=== PATIENT | male | born 1985 | race Caucasian/White ===

== ENCOUNTER 2025-08-07 16:00 | Inpatient (IN) ==
[2025-08-07 16:31] LABS: Hematocrit (blood only) 40.6 % (42.0-52.0); Hemoglobin 13.3 g/dl (14.0-18.0); Immature Granulocytes # (auto) 0.01 K/uL (0.01-0.20); Immature Granulocytes % (auto) 0.2 %; Mean Corpuscular Hemoglobin 28.0 pg (25.0-34.0); Mean Corpuscular Volume 85.5 fL (80.0-100.0); Platelet Count 231 K/uL (130-400); RDW Standard Deviation 47.7 fL (36.4-46.3); Red Blood Count 4.75 M/uL (4.70-6.10); White Blood Count 5.32 K/ul (4.8-10.8)
[2025-08-07 16:50] LABS: Alanine Aminotransferase 366.0 U/L (7-52); Albumin Level 4.1 gm/dl (3.4-5.0); Alkaline Phosphatase 267.0 U/L (34-104); Anion Gap 8.0 (3-11); Bilirubin,Total 8.1 mg/dl (0.2-1.0); Blood Urea Nitrogen 8.0 mg/dl (6-23); Calcium 9.4 mg/dl (8.6-10.3); Carbon Dioxide 27.0 mmol/L (21-32); Chloride 99.0 mmol/L (98-107); Creatinine Clr Calc Pharmacy 97.2 ml/min; Glucose 120.0 mg/dl (70-99(Fasting)); Lipase 13.0 U/L (11-82); Potassium 3.8 mmol/L (3.5-5.1); Sodium 134.0 mmol/L (136-145); Total Protein 7.8 gm/dl (6.0-8.3)
[2025-08-07 17:03] LABS: INR 1.4 (0.9-1.1); Partial Thromboplastin Time 27 Seconds (21-31); Prothrombin Time 14.6 Seconds (9.0-12.0)
--- NOTE | 2025-08-07 17:21 | Ultrasound Report ---
Clinical history: Right upper quadrant pain Technique: Sonography was performed of the right upper quadrant of the abdomen Findings: There is no sign of cirrhosis or significant fatty infiltration. No definite liver mass is seen There is gallbladder sludge and there are suspected small gallstones. The gallbladder is distended. The gallbladder has a normal wall thickness and no adjacent fluid is seen. No definite sonographic Rodrigez sign was detected. There is no intrahepatic or extrahepatic bile duct dilatation. The common bile duct measures 1 mm The right kidney measures 10 cm in length. There is no hydronephrosis. No definite renal calculus or mass is seen The pancreatic duct is dilated, measuring 8 mm. There is a suspected pancreatic head mass. No ascites is seen Impression: 1. Pancreatic ductal dilatation and suspected pancreatic head mass, concerning for pancreatic carcinoma. Pancreatic protocol abdominal CT with and without contrast is recommended for further evaluation 2. Gallbladder sludge and suspected small gallstones, without definite acute cholecystitis ACT 112: Positive. There are findings on this exam that require communication between the performing entity and the patient following Patient Test Result Information Act ([place] ACT 112) guidelines. Electronically signed by Carson Rich 08-07-2025 5:20 PM
[2025-08-07] MEDS: OPTIRAY 320 100ml IV ONE (18:29)
--- NOTE | 2025-08-07 18:57 | CT Scan Report ---
EXAMINATION: CT of the abdomen and pelvis performed after the administration of IV contrast TECHNIQUE: Helical CT images from the lung bases through the symphysis pubis were obtained with contrast. Coronal and sagittal reformatted images were generated at a workstation for further assessment. Dose reduction techniques were achieved by using automatic exposure control and/or adjustment of mA and/or kV according to patient size and/or use of iterative reconstruction technique. COMPARISON: None HISTORY: Abdominal pain FINDINGS: Ill-defined low attenuating masslike fullness of the head of the pancreas, as seen on series 3 image 116, measuring 3.7 x 2.5 cm, which appears to contact approximately 90 degrees of the SMV, and 90 degrees of the SMA. There is marked dilation of the pancreatic duct and marked dilation of the common bile duct and intrahepatic bile ducts with abrupt transition. A discrete liver mass is not definitely seen. Mildly dilated gallbladder without visualized stone. Adrenal glands, kidneys, spleen are normal. Antiradial caval lymph node on series 3 image 94, measures 14 x 14 mm, and is enlarged. A claudia hepatic lymph node on series 3 image 84, measuring 13 x 8 mm, is borderline enlarged. No abnormally dilated bowel. No appendicitis. The lung bases are clear. No bony abnormality. IMPRESSION: There is an ill-defined mass in the head of the pancreas, likely an adenocarcinoma, resulting in marked pancreatic and biliary ductal dilatation. A few of the surrounding lymph nodes in the upper abdomen are enlarged, with metastatic disease not excluded. No definite findings of distant metastasis. "ACT 112: Positive. There are findings on this exam that require communication between the performing entity and the patient following Patient Test Result Information Act ([place] ACT 112) guidelines." Electronically signed by King Rick 08-07-2025 6:57 PM
--- NOTE | 2025-08-07 19:28 | Emergency Department Note ---
History of Present Illness General Chief Complaint: Abnormal Labs/Diagnostic Testing Stated Complaint: DARK URINE, HIGH LIVER ENZYMES SCLERA Time Seen by Provider: 08/07/25 16:08 History of Present Illness Provider Complaint: abdominal pain Onset (ago): 1 week(s) Pain Consistency: constant Location: RUQ Radiation: epigastric Severity: moderate Maximum Pain Intensity: 4 Current Pain Intensity: 4 Quality: + stabbing and + sharp Relieved By: + nothing Exacerbated By: + nothing Context: no foreign travel, no possible food poisoning, no sick contacts, no recent antibiotic use, no recent surgery/procedure or no recent injury Associated Symptoms: + nausea and + vomiting; no diarrhea, no fever, no chills, no constipation, no dysuria, no hematemesis, no melena, no hematuria, no syncope, no headache, no chest pain and no breathing difficulty Home Medications Medication Instructions Recorded Confirmed Type buprenorphine 8 mg-naloxone 2 mg 2 tab sublingual DAILY 08/07/25 08/07/25 History sublingual tablet docusate sodium 100 mg capsule 200 mg PO DAILY 08/07/25 08/07/25 History (Colace) Allergies Allergy/AdvReac Type Severity Reaction Status Date / Time clindamycin Allergy Unknown ON SCI Verified 08/07/25 18:36 [facility] MED LIST Past Med/Surg History Problem List (Updated 08/07/25 @ 20:34 by Dale Nguyen MD) 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 (Acute) Social History Smoking Status: Former smoker Feels Safe at Home: Yes Physical Exam 2 Vital Signs: Vital Signs - 24 hr 08/07/25 16:04 08/07/25 16:19 08/07/25 16:32 Temperature 36.5 C Temperature Source Oral Pulse Rate 67 68 Pulse Rate [Finger ] Pulse Rhythm [Fing er] Pulse Strength [Fi nger] Respiratory Rate 18 Respiratory Effort / Characteristics Respiratory Depth Respiratory Patter n Blood Pressure 126/86 Blood Pressure [Le ft Arm] Blood Pressure Cherelle n 99 Blood Pressure Cherelle n [Left Arm] Blood Pressure Pos ition Sitting Blood Pressure Pos ition [Left Arm] Pulse Oximetry 98 98 Oxygen Delivery Me thod Room Air Room Air Sepsis Recent Feve r Within 48 Hours No Sepsis New/Unexpla ined Change in Men caleb Status No Sepsis Action Take n by Nursing No Action Required 08/07/25 17:14 08/07/25 19:00 08/07/25 21:00 Temperature Temperature Source Pulse Rate Pulse Rate [Finger ] 50 L 50 L 64 Pulse Rhythm [Fing er] Regular Regular Pulse Strength [Fi nger] Normal Normal Respiratory Rate 20 18 16 Respiratory Effort / Characteristics Non-Labored Sponta neous Non-Labored Sponta neous Non-Labored Sponta neous Respiratory Depth Normal Normal Normal Respiratory Patter n Regular Regular Blood Pressure Blood Pressure [Le ft Arm] 116/71 121/67 123/85 Blood Pressure Cherelle n Blood Pressure Cherelle n [Left Arm] 86 85 97 Blood Pressure Pos ition Blood Pressure Pos ition [Left Arm] Sitting Lying Lying Pulse Oximetry 98 97 98 Oxygen Delivery Me thod Room Air Room Air Room Air Sepsis Recent Feve r Within 48 Hours Sepsis New/Unexpla ined Change in Men caleb Status Sepsis Action Take n by Nursing Physical Exam: Physical Exam GENERAL: Patient at bedside with correctional officers. HENT: Exam performed. - Head: Normocephalic and atraumatic. EYES: Conjunctivae and EOM are normal. Right eye exhibits no discharge. Left eye exhibits no discharge. scleral icterus present bilaterally NECK: Normal range of motion. Neck supple. No JVD present. CV: Normal rate, regular rhythm, normal heart sounds and intact distal pulses. There is no peripheral edema. Palpable radial pulses bue. PULM/CHEST: Effort normal and breath sounds normal. No respiratory distress. No stridor. no wheezes. no rales. ABD: The abdomen is soft. There is tenderness to palpation of the right upper quadrant and epigastric area. Rodrigez sign negative. Rovsing sign negative. No guarding or rigidity. NEURO: Motor and sensation grossly intact. SKIN: Skin is warm and dry. He is not diaphoretic. PSYCH: normal mood and affect. Behavior is normal. Judgment and thought content normal. Course Course 1608: The patient was evaluated in room B7. A complete history and physical exam was performed Cardiac monitoring: An order was placed for continuous cardiac monitoring. The monitor shows a rate of 50 with sinus rhythm interpreted by me 1730: Vital signs stable. Labs show white blood cell count 5.32 hemoglobin 13.3 total bilirubin 8.1 direct bilirubin 4.7 AST 143 ALT 366 alkaline phosphatase 267. Ultrasound imaging is concerning for pancreatic mass. Will obtain CT of the abdomen pelvis. 1938: Vital signs stable. CT imaging shows pancreatic mass appearing to be adenocarcinoma causing biliary obstruction. Discussed the case with [facility] Dr. Del Cid who accepts the transfer. Images sent to him via [employer]. 2043: [facility] called charge nurse Zoey and stated that they have no surgical bed available today but think that they might have some available tomorrow. Will admit the patient to the hospitalist team here awaiting bed [facility] tomorrow. Administered Medications Sodium Chloride (Nss) 1,000 mls @ 100 mls/hr IV .Q10H CYNDI Stop: 08/10/25 23:32 Last Admin: 08/07/25 23:49 Dose: 100 mls/hr Documented By: TP Discontinued Medications Ioversol (Optiray 320 100ml) 90 ml IV ONCE ONE Stop: 08/07/25 18:29 Last Admin: 08/07/25 18:29 Dose: 90 ml Documented By: RON Medical Decision Making Laboratory Data Attestation: I reviewed the patient's lab results. 08/07/25 16:20 08/07/25 16:20 Lab Results 08/07/25 Range/Units 16:20 WBC 5.32 (4.8-10.8) K/ul RBC 4.75 (4.70-6.10) M/uL Hgb 13.3 L (14.0-18.0) g/dl Hct 40.6 L (42.0-52.0) % MCV 85.5 (80.0-100.0) fL MCH 28.0 (25.0-34.0) pg MCHC 32.8 (32.0-36.0) g/dL RDW Std Deviation 47.7 H (36.4-46.3) fL RDW Coeff of Boo 15.2 H (11.5-14.5) % Plt Count 231 (130-400) K/uL MPV 11.5 (9.4-12.4) fL Immature Gran % (Auto) 0.2 % Neut % (Auto) 40.8 % Lymph % (Auto) 44.5 % Platte % (Auto) 9.8 % Eos % (Auto) 3.8 % Baso % (Auto) 0.9 % Neut # (Auto) 2.17 (1.40-6.50) K/uL Lymph # (Auto) 2.37 (1.20-3.40) K/uL Platte # (Auto) 0.52 (0.11-0.59) K/uL Eos # (Auto) 0.20 (0.00-0.50) K/uL Baso # (Auto) 0.05 (0.00-0.20) K/uL Immature Gran # (Auto) 0.01 (0.01-0.20) K/uL PT 14.6 H (9.0-12.0) Seconds INR 1.4 H (0.9-1.1) APTT 27 (21-31) Seconds PTT Ratio 1.0 Sodium 134 L (136-145) mmol/L Potassium 3.8 (3.5-5.1) mmol/L Chloride 99 (98-107) mmol/L Carbon Dioxide 27 (21-32) mmol/L Anion Gap 8 (3-11) BUN 8 (6-23) mg/dl Creatinine 1.02 (0.6-1.4) mg/dl Est Cr Clr Drug Dosing 97.2 ml/min eGFR 95.88 BUN/Creatinine Ratio 7.8 L (10-20) Glucose 120 H (70-99(Fasting)) mg/dl Calcium 9.4 (8.6-10.3) mg/dl Total Bilirubin 8.1 H (0.2-1.0) mg/dl Direct Bilirubin 4.7 H (0-0.2) mg/dl AST 143 H (13-39) U/L ALT 366 H (7-52) U/L Alkaline Phosphatase 267 H (34-104) U/L Total Protein 7.8 (6.0-8.3) gm/dl Albumin 4.1 (3.4-5.0) gm/dl Lipase 13 (11-82) U/L Imaging Data Attestation: I personally reviewed and interpreted this imaging study as follows: My Impression: Ultrasound gallbladder: Biliary sludge. Possible pancreatic mass. Radiologist's Impression: Gallbladder Ultrasound 08/07/25 16:14 Clinical history: Right upper quadrant pain Technique: Sonography was performed of the right upper quadrant of the abdomen Findings: There is no sign of cirrhosis or significant fatty infiltration. No definite liver mass is seen There is gallbladder sludge and there are suspected small gallstones. The gallbladder is distended. The gallbladder has a normal wall thickness and no adjacent fluid is seen. No definite sonographic Rodrigez sign was detected. There is no intrahepatic or extrahepatic bile duct dilatation. The common bile duct measures 1 mm The right kidney measures 10 cm in length. There is no hydronephrosis. No definite renal calculus or mass is seen The pancreatic duct is dilated, measuring 8 mm. There is a suspected pancreatic head mass. No ascites is seen Impression: 1. Pancreatic ductal dilatation and suspected pancreatic head mass, concerning for pancreatic carcinoma. Pancreatic protocol abdominal CT with and without contrast is recommended for further evaluation 2. Gallbladder sludge and suspected small gallstones, without definite acute cholecystitis ACT 112: Positive. There are findings on this exam that require communication between the performing entity and the patient following Patient Test Result Information Act ([place] ACT 112) guidelines. Electronically signed by Carson Rich 08-07-2025 5:20 PM Abdomen/Pelvis CT 08/07/25 17:31 EXAMINATION: CT of the abdomen and pelvis performed after the administration of IV contrast TECHNIQUE: Helical CT images from the lung bases through the symphysis pubis were obtained with contrast. Coronal and sagittal reformatted images were generated at a workstation for further assessment. Dose reduction techniques were achieved by using automatic exposure control and/or adjustment of mA and/or kV according to patient size and/or use of iterative reconstruction technique. COMPARISON: None HISTORY: Abdominal pain FINDINGS: Ill-defined low attenuating masslike fullness of the head of the pancreas, as seen on series 3 image 116, measuring 3.7 x 2.5 cm, which appears to contact approximately 90 degrees of the SMV, and 90 degrees of the SMA. There is marked dilation of the pancreatic duct and marked dilation of the common bile duct and intrahepatic bile ducts with abrupt transition. A discrete liver mass is not definitely seen. Mildly dilated gallbladder without visualized stone. Adrenal glands, kidneys, spleen are normal. Antiradial caval lymph node on series 3 image 94, measures 14 x 14 mm, and is enlarged. A claudia hepatic lymph node on series 3 image 84, measuring 13 x 8 mm, is borderline enlarged. No abnormally dilated bowel. No appendicitis. The lung bases are clear. No bony abnormality. IMPRESSION: There is an ill-defined mass in the head of the pancreas, likely an adenocarcinoma, resulting in marked pancreatic and biliary ductal dilatation. A few of the surrounding lymph nodes in the upper abdomen are enlarged, with metastatic disease not excluded. No definite findings of distant metastasis. "ACT 112: Positive. There are findings on this exam that require communication between the performing entity and the patient following Patient Test Result Information Act ([place] ACT 112) guidelines." Electronically signed by King Rick 08-07-2025 6:57 PM [facility] Narrative 1608: The patient was evaluated in room B7. A complete history and physical exam was performed Cardiac monitoring: An order was placed for continuous cardiac monitoring. The monitor shows a rate of 50 with sinus rhythm interpreted by pr 1730: Vital signs stable. Labs show white blood cell count 5.32 hemoglobin 13.3 total bilirubin 8.1 direct bilirubin 4.7 AST 143 ALT 366 alkaline phosphatase 267. Ultrasound imaging is concerning for pancreatic mass. Will obtain CT of the abdomen pelvis. 1937: Vital signs stable. CT imaging shows pancreatic mass appearing to be adenocarcinoma causing biliary obstruction. Discussed the case with [facility] Dr. Del Cid who accepts the transfer. Images sent to him via [employer]. 2043: [facility] called charge nurse Zoey and stated that they have no surgical bed available today but think that they might have some available tomorrow. Will admit the patient to the hospitalist team here awaiting bed to [facility] tomorrow. Impression & Plan 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 Discharge Plan Visit Data Chief Complaint: Abnormal Labs/Diagnostic Testing Stated Complaint: DARK URINE, HIGH LIVER ENZYMES SCLERA ED Provider: Dale Nguyen Discharge Problem: 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 Patient Disposition: Admitted As Inpatient Condition: Serious Discharge Instructions Interventions: ED Discharge Assessment Last Done: 08/07/25 23:08
--- NOTE | 2025-08-07 23:13 | History & Physical Report ---
Date of Service August 07, 2025 Assessment & Plan (1) 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: Plan: 40-year-old male coming from skilled nursing because of abdominal pain and abnormal labs. Patient states having right abdomen pain for last 1 week. Pain is 5/5 in severity. No radiation of pain. No nausea. Decreased appetite. Somewhat constipated. Denies blood in stools or black stools. Micturating okay. No fevers. No chest pain or shortness of breath. No cough. No headache .No dizziness. Vision is okay .No runny nose or sore throat. No weight loss. In the ER labs showed total bilirubin 4.7, ALT 366, AST of 143, alkaline phos was 267. CT abdomen pelvis showing ill-defined mass in the head of the pancreas likely adenocarcinoma resulting marked pancreatic and biliary ductal dilatation. ER talked with the [facility] surgery who accepted the patient transfer but as the there are no beds available tonight patient is getting admitted here. Biliary obstruction due to possible cancer Elevated LFTs Right-sided abdominal pain Gallbladder ultrasound shows pancreatic ductal dilatation and suspected pancreatic head mass concerning for pancreatic adenocarcinoma. Gallbladder sludge and suspected small gallstones without definite acute cholecystitis. CT abdomen pelvis with IV contrast shows ill-defined mass in the head of the pancreas likely an adenocarcinoma resulting in marked pancreatic and biliary ductal dilatation with few surrounding lymph nodes in the upper abdomen or enlarged with metastatic disease not excluded ER talked to the surgery at [place] and was accepted in transfer and awaiting for bed Follow repeat labs in a.m. DVT prophylaxis SCDs for now Disposition Medical floor Awaiting transfer to [place] History of Present Illness Chief Complaint: Elevated LFTs and pancreatic mass Primary Care Provider: RACHEL Edge 40-year-old male coming from skilled nursing because of abdominal pain and abnormal labs. Patient states having right abdomen pain for last 1 week. Pain is 5/5 in severity. No radiation of pain. No nausea. Decreased appetite. Somewhat c onstipated. Denies blood in stools or black stools. Micturating okay. No fevers. No chest pain or shortness of breath. No cough. No headache .No dizziness. Vision is okay .No runny nose or sore throat. No weight loss. In the ER labs showed total bilirubin 4.7, ALT 366, AST of 143, alkaline phos was 267. CT abdomen pelvis showing ill-defined mass in the head of the pancreas likely adenocarcinoma resulting marked pancreatic and biliary ductal dilatation. ER talked with the [facility] surgery who accepted the patient transfer but as the there are no beds available tonight patient is getting admitted here. Past medical history. Denies any medical history. Past surgical history. Had surgery for right arm for injury and trigger finger release in right hand Social history. Smokes 1 pack of cigarette daily since age 18. Alcohol occasional. Denies any drug use. Family history. Father had diabetes and high blood pressure. Allergies Allergy/AdvReac Type Severity Reaction Status Date / Time clindamycin Allergy Unknown ON SCI Verified 08/07/25 18:36 SWETHA TWP MED LIST Home Medications Medication Instructions Recorded Confirmed Type buprenorphine 8 mg-naloxone 2 mg 2 tab sublingual DAILY 08/07/25 08/07/25 History sublingual tablet docusate sodium 100 mg capsule 200 mg PO DAILY 08/07/25 08/07/25 History (Colace) Past Med/Surg History Problem List (Updated 08/07/25 @ 20:34 by Dale Nguyen MD) 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 (Acute) Social History Smoking Status: Never smoker Second Hand Exposure: No; Do You Dip or Chew Tobacco: No; Tobacco Cessation Education Requested by Patient: No Hx Alcohol Use: No Hx Substance Use: No Preferred Language: Lao Communication Ability: Effective Provider Network Mgr Required: No Beliefs That Will Affect Care: None Current Living Situation: Other Current Living Situation Comment: [facility] Other Information That Helps Us Care for You: No Feels Safe at Home: Yes Safety Concerns: Feels Safe At This Time Assistive Devices: None Review of Systems Review of Systems: All systems reviewed & are unremarkable except as noted in HPI & below Physical Exam Physical Exam: General- Not in distress Head- atraumatic Eyes- PERRL, icterus present ENT- oropharynx clear Neck- supple, no JVD. Lungs- clear to auscultation no wheezing or crackles. Heart- regular rate and rhythm; no murmur, no gallop. Abdomen- normal bowel sounds, soft, nontender, no distension Extremities- no pretibial edema, no erythema seen Neuro- alert, oriented PERRL, no facial palsy; no dysarthria; moves extremities Results & Data Results & Data Vital Signs (Past 12 Hours) Vital Signs Temp Pulse Pulse Resp BP BP Pulse Ox 08/07/25 21:00 64 16 123/85 98 08/07/25 19:00 50 L 18 121/67 97 08/07/25 17:14 50 L 20 116/71 98 08/07/25 16:32 68 08/07/25 16:19 98 08/07/25 16:04 36.5 C 67 18 126/86 98 O2 Del Method 08/07/25 21:00 Room Air 08/07/25 19:00 Room Air 08/07/25 17:14 Room Air 08/07/25 16:32 08/07/25 16:19 Room Air 08/07/25 16:04 Room Air Diagnostic Findings Laboratory Results WBC 5.32 K/ul (4.8-10.8) 08/07/25 16:20 RBC 4.75 M/uL (4.70-6.10) 08/07/25 16:20 Hgb 13.3 g/dl (14.0-18.0) L 08/07/25 16:20 Hct 40.6 % (42.0-52.0) L 08/07/25 16:20 MCV 85.5 fL (80.0-100.0) 08/07/25 16:20 MCH 28.0 pg (25.0-34.0) 08/07/25 16:20 MCHC 32.8 g/dL (32.0-36.0) 08/07/25 16:20 RDW Std Deviation 47.7 fL (36.4-46.3) H 08/07/25 16:20 RDW Coeff of Boo 15.2 % (11.5-14.5) H 08/07/25 16:20 Plt Count 231 K/uL (130-400) 08/07/25 16:20 MPV 11.5 fL (9.4-12.4) 08/07/25 16:20 Immature Gran % (Auto) 0.2 % 08/07/25 16:20 Neut % (Auto) 40.8 % 08/07/25 16:20 Lymph % (Auto) 44.5 % 08/07/25 16:20 [place] % (Auto) 9.8 % 08/07/25 16:20 Eos % (Auto) 3.8 % 08/07/25 16:20 Baso % (Auto) 0.9 % 08/07/25 16:20 Neut # (Auto) 2.17 K/uL (1.40-6.50) 08/07/25 16:20 Lymph # (Auto) 2.37 K/uL (1.20-3.40) 08/07/25 16:20 [place] # (Auto) 0.52 K/uL (0.11-0.59) 08/07/25 16:20 Eos # (Auto) 0.20 K/uL (0.00-0.50) 08/07/25 16:20 Baso # (Auto) 0.05 K/uL (0.00-0.20) 08/07/25 16:20 Immature Gran # (Auto) 0.01 K/uL (0.01-0.20) 08/07/25 16:20 PT 14.6 Seconds (9.0-12.0) H 08/07/25 16:20 INR 1.4 (0.9-1.1) H 08/07/25 16:20 APTT 27 Seconds (21-31) 08/07/25 16:20 PTT Ratio 1.0 08/07/25 16:20 Sodium 134 mmol/L (136-145) L 08/07/25 16:20 Potassium 3.8 mmol/L (3.5-5.1) 08/07/25 16:20 Chloride 99 mmol/L (98-107) 08/07/25 16:20 Carbon Dioxide 27 mmol/L (21-32) 08/07/25 16:20 Anion Gap 8 (3-11) 08/07/25 16:20 BUN 8 mg/dl (6-23) 08/07/25 16:20 Creatinine 1.02 mg/dl (0.6-1.4) 08/07/25 16:20 Est Cr Clr Drug Dosing 97.2 ml/min 08/07/25 16:20 eGFR 95.88 08/07/25 16:20 BUN/Creatinine Ratio 7.8 (10-20) L 08/07/25 16:20 Glucose 120 mg/dl (70-99(Fasting)) H 08/07/25 16:20 Calcium 9.4 mg/dl (8.6-10.3) 08/07/25 16:20 Total Bilirubin 8.1 mg/dl (0.2-1.0) H 08/07/25 16:20 Direct Bilirubin 4.7 mg/dl (0-0.2) H 08/07/25 16:20 AST 143 U/L (13-39) H 08/07/25 16:20 ALT 366 U/L (7-52) H 08/07/25 16:20 Alkaline Phosphatase 267 U/L (34-104) H 08/07/25 16:20 Total Protein 7.8 gm/dl (6.0-8.3) 08/07/25 16:20 Albumin 4.1 gm/dl (3.4-5.0) 08/07/25 16:20 Lipase 13 U/L (11-82) 08/07/25 16:20 Impressions Gallbladder Ultrasound 08/07/25 16:14 Clinical history: Right upper quadrant pain Technique: Sonography was performed of the right upper quadrant of the abdomen Findings: There is no sign of cirrhosis or significant fatty infiltration. No definite liver mass is seen There is gallbladder sludge and there are suspected small gallstones. The gallbladder is distended. The gallbladder has a normal wall thickness and no adjacent fluid is seen. No definite sonographic Rodrigez sign was detected. There is no intrahepatic or extrahepatic bile duct dilatation. The common bile duct measures 1 mm The right kidney measures 10 cm in length. There is no hydronephrosis. No definite renal calculus or mass is seen The pancreatic duct is dilated, measuring 8 mm. There is a suspected pancreatic head mass. No ascites is seen Impression: 1. Pancreatic ductal dilatation and suspected pancreatic head mass, concerning for pancreatic carcinoma. Pancreatic protocol abdominal CT with and without contrast is recommended for further evaluation 2. Gallbladder sludge and suspected small gallstones, without definite acute cholecystitis ACT 112: Positive. There are findings on this exam that require communication between the performing entity and the patient following Patient Test Result Information Act ([place] ACT 112) guidelines. Electronically signed by Carson Rich 08-07-2025 5:20 PM Abdomen/Pelvis CT 08/07/25 17:31 EXAMINATION: CT of the abdomen and pelvis performed after the administration of IV contrast TECHNIQUE: Helical CT images from the lung bases through the symphysis pubis were obtained with contrast. Coronal and sagittal reformatted images were generated at a workstation for further assessment. Dose reduction techniques were achieved by using automatic exposure control and/or adjustment of mA and/or kV according to patient size and/or use of iterative reconstruction technique. COMPARISON: None HISTORY: Abdominal pain FINDINGS: Ill-defined low attenuating masslike fullness of the head of the pancreas, as seen on series 3 image 116, measuring 3.7 x 2.5 cm, which appears to contact approximately 90 degrees of the SMV, and 90 degrees of the SMA. There is marked dilation of the pancreatic duct and marked dilation of the common bile duct and intrahepatic bile ducts with abrupt transition. A discrete liver mass is not definitely seen. Mildly dilated gallbladder without visualized stone. Adrenal glands, kidneys, spleen are normal. Antiradial caval lymph node on series 3 image 94, measures 14 x 14 mm, and is enlarged. A claudia hepatic lymph node on series 3 image 84, measuring 13 x 8 mm, is borderline enlarged. No abnormally dilated bowel. No appendicitis. The lung bases are clear. No bony abnormality. IMPRESSION: There is an ill-defined mass in the head of the pancreas, likely an adenocarcinoma, resulting in marked pancreatic and biliary ductal dilatation. A few of the surrounding lymph nodes in the upper abdomen are enlarged, with metastatic disease not excluded. No definite findings of distant metastasis. "ACT 112: Positive. There are findings on this exam that require communication between the performing entity and the patient following Patient Test Result Information Act ([place] ACT 112) guidelines." Electronically signed by King Rick 08-07-2025 6:57 PM Code Status & VTE Plan VTE Prophylaxis Plan VTE Prophylaxis will be ordered: Yes
[2025-08-07] MEDS ORDERED: POLYETHYLENE (MIRALAX) 17 GM PACK PO PRN (23:33)
[2025-08-07] MEDS: SODIUM CHLORIDE 0.9% 1,000 ML IV SCH (23:49)
[2025-08-08 00:52] VITALS: TEMP 97.9
[2025-08-08] MEDS: MoRPHine SULFATE 4 MG/ML 1 ML CARP\\VIAL ONE (01:11)
[2025-08-08] MEDS: MoRPHine SULFATE 4 MG/ML 1 ML CARP\\VIAL IV PRN (01:12)
[2025-08-08 07:16] LABS: Hematocrit (blood only) 37.9 % (42.0-52.0); Hemoglobin 12.6 g/dl (14.0-18.0); Immature Granulocytes # (auto) 0.01 K/uL (0.01-0.20); Immature Granulocytes % (auto) 0.2 %; Mean Corpuscular Hemoglobin 28.5 pg (25.0-34.0); Mean Corpuscular Volume 85.7 fL (80.0-100.0); Platelet Count 237 K/uL (130-400); RDW Standard Deviation 48.1 fL (36.4-46.3); Red Blood Count 4.42 M/uL (4.70-6.10); White Blood Count 4.87 K/ul (4.8-10.8)
[2025-08-08 07:31] LABS: Alanine Aminotransferase 344.0 U/L (7-52); Albumin Level 3.7 gm/dl (3.4-5.0); Alkaline Phosphatase 239.0 U/L (34-104); Anion Gap 6.0 (3-11); Bilirubin,Total 7.4 mg/dl (0.2-1.0); Blood Urea Nitrogen 7.0 mg/dl (6-23); Calcium 9.1 mg/dl (8.6-10.3); Carbon Dioxide 29.0 mmol/L (21-32); Chloride 103.0 mmol/L (98-107); Creatinine Clr Calc Pharmacy 109.0 ml/min; Glucose 102.0 mg/dl (70-99(Fasting)); Magnesium 1.9 mg/dl (1.7-2.4); Potassium 4.0 mmol/L (3.5-5.1); Sodium 138.0 mmol/L (136-145); Total Protein 6.9 gm/dl (6.0-8.3)
[2025-08-08 07:47] VITALS: O2SAT 98
[2025-08-08] MEDS: DOCUSATE SODIUM 100 MG CAP PO SCH (08:23)
[2025-08-08] MEDS: BUPRENORPHINE/NALOXONE 8/2 MG TAB SL SCH (08:24)
[2025-08-08 15:26] VITALS: BP 118/67; PULSE 48; RESP 16
--- NOTE | 2025-08-08 15:48 | Discharge Summary ---
Date of Service August 08, 2025 Admission HPI Per Admitting Provider 40-year-old male coming from [facility] because of abdominal pain and abnormal labs. Patient states having right abdomen pain for last 1 week. Pain is 5/5 in severity. No radiation of pain. No nausea. Decreased appetite. Somewhat constipated. Denies blood in stools or black stools. Micturating okay. No fevers. No chest pain or shortness of breath. No cough. No headache .No dizziness. Vision is okay .No runny nose or sore throat. No weight loss. In the ER labs showed total bilirubin 4.7, ALT 366, AST of 143, alkaline phos was 267. CT abdomen pelvis showing ill-defined mass in the head of the pancreas likely adenocarcinoma resulting marked pancreatic and biliary ductal dilatation. ER talked with the [facility] surgery who accepted the patient transfer but as the there are no beds available tonight patient is getting admitted here. Past medical history. Denies any medical history. Past surgical history. Had surgery for right arm for injury and trigger finger release in right hand Social history. Smokes 1 pack of cigarette daily since age 18. Alcohol occasional. Denies any drug use. Family history. Father had diabetes and high blood pressure. Admission Exam Per Admitting Provider General- Not in distress Head- atraumatic Eyes- PERRL, icterus present ENT- oropharynx clear Neck- supple, no JVD. Lungs- clear to auscultation no wheezing or crackles. Heart- regular rate and rhythm; no murmur, no gallop. Abdomen- normal bowel sounds, soft, nontender, no distension Extremities- no pretibial edema, no erythema seen Neuro- alert, oriented PERRL, no facial palsy; no dysarthria; moves extremities Principal Diagnosis Biliary obstruction due to possible cancer Mass in the head of the pancreas Elevated LFTs Right-sided abdominal pain Discharge Exam General- WD/WN M Not in distress Head- atraumatic Eyes- PERRL Neck- supple Lungs- clear to auscultation no wheezing or crackles. Heart- regular rate and rhythm; no murmur Abdomen- normal bowel sounds, soft, nontender, no distension Extremities- no pretibial edema, no erythema seen Neuro- alert, oriented PERRL, no facial palsy; no dysarthria; moves extremities Discharge Data Allergies Allergy/AdvReac Type Severity Reaction Status Date / Time clindamycin Allergy Unknown ON SCI Verified 08/07/25 18:36 SWETHA TWP MED LIST Consultations 08/07/25 20:43 ED Decision to Admit Stat 08/08/25 14:27 Burn CD for patient Routine Ordered Studies 08/07/25 16:14 US gallbladder Stat Findings: There is no sign of cirrhosis or significant fatty infiltration. No definite liver mass is seen There is gallbladder sludge and there are suspected small gallstones. The gallbladder is distended. The gallbladder has a normal wall thickness and no adjacent fluid is seen. No definite sonographic Rodrigez sign was detected. There is no intrahepatic or extrahepatic bile duct dilatation. The common bile duct measures 1 mm The right kidney measures 10 cm in length. There is no hydronephrosis. No definite renal calculus or mass is seen The pancreatic duct is dilated, measuring 8 mm. There is a suspected pancreatic head mass. No ascites is seen Impression: 1. Pancreatic ductal dilatation and suspected pancreatic head mass, concerning for pancreatic carcinoma. Pancreatic protocol abdominal CT with and without contrast is recommended for further evaluation 2. Gallbladder sludge and suspected small gallstones, without definite acute cholecystitis ACT 112: Positive. There are findings on this exam that require communication between the performing entity and the patient following Patient Test Result Information Act ([place] ACT 112) guidelines. 08/07/25 17:31 CT abd pelvis IV con only Stat FINDINGS: Ill-defined low attenuating masslike fullness of the head of the pancreas, as seen on series 3 image 116, measuring 3.7 x 2.5 cm, which appears to contact approximately 90 degrees of the SMV, and 90 degrees of the SMA. There is marked dilation of the pancreatic duct and marked dilation of the common bile duct and intrahepatic bile ducts with abrupt transition. A discrete liver mass is not definitely seen. Mildly dilated gallbladder without visualized stone. Adrenal glands, kidneys, spleen are normal. Antiradial caval lymph node on series 3 image 94, measures 14 x 14 mm, and is enlarged. A claudia hepatic lymph node on series 3 image 84, measuring 13 x 8 mm, is borderline enlarged. No abnormally dilated bowel. No appendicitis. The lung bases are clear. No bony abnormality. IMPRESSION: There is an ill-defined mass in the head of the pancreas, likely an adenocarcinoma, resulting in marked pancreatic and biliary ductal dilatation. A few of the surrounding lymph nodes in the upper abdomen are enlarged, with metastatic disease not excluded. No definite findings of distant metastasis. "ACT 112: Positive. 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 Patient states having right abdomen pain for last 1 week. Pain is 5/5 in severity. No radiation of pain. No nausea. Decreased appetite. Somewhat constipated. Denies blood in stools or black stools. Micturating okay. No fevers. No chest pain or shortness of breath. No cough. No headache .No dizziness. Vision is okay .No runny nose or sore throat. No weight loss. In the ER labs showed total bilirubin 4.7, ALT 366, AST of 143, alkaline phos was 267. CT abdomen pelvis showing ill-defined mass in the head of the pancreas likely adenocarcinoma resulting marked pancreatic and biliary ductal dilatation. ER talked with the [facility] surgery who accepted the patient transfer but as the there are no beds available tonight patient is getting admitted here. Biliary obstruction due to possible cancer Elevated LFTs Right-sided abdominal pain Gallbladder ultrasound shows pancreatic ductal dilatation and suspected pancreatic head mass concerning for pancreatic adenocarcinoma. Gallbladder sludge and suspected small gallstones without definite acute cholecystitis. CT abdomen pelvis with IV contrast shows ill-defined mass in the head of the pancreas likely an adenocarcinoma resulting in marked pancreatic and biliary ductal dilatation with few surrounding lymph nodes in the upper abdomen or enlarged with metastatic disease not excluded ER talked to the surgery at [place] and was accepted in transfer and awaiting for bed 08/08 Pt laying in bed in [facility]. Continues to report some abdominal discomfort at [facility]. Transfer now available and pt will be heading to [facility] for further evaluation and care. Total Time Total Time Spent Total Time Spent (In Minutes): 25 Discharge Plan Discharge Items Patient Disposition: Transfer Acute Care Hospital Reason For Visit: ELEVATED LFT, PANCREATIC MASS Discharge Diagnosis: Biliary obstruction due to possible cancer Mass in the head of the pancreas Elevated LFTs Right-sided abdominal pain Condition on Discharge: Serious Activity: Per Instructions section Non-emergency contact: Primary Care Provider and Specialist Call non-emergency contact if: you have any medication questions and your symptoms worsen Follow-up/Referrals: Swetha RAMOS [Primary Care Provider] - Diet: Nothing by Mouth Addtl Attending Provider Instructions: Patient to be transferred to [facility] for further evaluation and care. Pending Studies at Discharge: No Stand-Alone Forms: [facility] Patient informed of condition?: Yes DNR: No Discharge Level of Care: Other Communicable Disease: No Discharge Prognosis: Other Lines: Peripheral IV Urinary Catheter: No Medications and DC Order Prescriptions: Continued docusate sodium [Colace] 100 mg Capsule 200 mg PO DAILY buprenorphine-naloxone [Suboxone] 8-2 mg Tablet, Sublingual 2 tab SUBLINGUAL DAILY Rx Instructions: CRUSH Discharge Orders: Discharge Order (Routine); Ordered 08/08/25 Ordered By: Demetri Damian Admission Data Admit Date/Time: 08/07/25 21:24 Attending Provider: Demetri Damian Admit Provider: Gary Larsen Primary Care Provider: Swetha RAMOS Other Providers: Gary Larsen
== END 2025-08-08 15:55 | disposition short-term general hospital (02) | DRG 445 ==
LOC: ED 16:00 → 3N 21:24